=== PATIENT | female | born 1935 | race Caucasian/White ===

== ENCOUNTER 2017-11-06 21:35 | Emergency (ER) | payer OTHER, SELFPAY ==
--- NOTE | 2017-11-06 21:38 | ED.UPPEXIN ---
HPI - Extremity Injury (Upper) General Chief Complaint: Extremity Problem,Nontraumatic Stated Complaint: LT ARM PAIN Time Seen by Provider: 11/06/17 21:38 Source: patient Mode of arrival: ambulatory Limitations: no limitations History of Present Illness HPI narrative: 81-year-old female here for evaluation of left arm pain. Patient states that soon after she awoke this morning she had an episode of pain on the outside of her left arm about midway between her elbow and shoulder. She states that it lasted less than 15 sec. She says it felt like that she was getting a shot. States that it went completely away. Has had a couple other times throughout the day. States that she waited until the evening to come in because ?that is when I got things done ?. Has never had any cardiac issues in the past. Is not currently having any symptoms the time of my evaluation. States that it was a pinpoint pain on the outside of her arm. She states that she does not know if it got worse when she touched it or when she moved her arm. She could not reproduce it by palpation or moving her arm. Never anything like it before. She states that she has been moving heavy objects over the past couple days trying to get her garden together. 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 #20 units 09/18/17 [massage] #12 units 09/18/17 Allergies Allergy/AdvReac Type Severity Reaction Status Date / Time No Known Allergies Allergy Uncoded 11/06/17 21:53 Review of Systems Constitutional Denies chills, Denies fever(s), Denies lethargy and Denies weakness Cardiovascular Denies chest pain, Denies irregular heart rhythm, Denies lightheadedness, Denies palpitations, Denies dyspnea, Denies dyspnea on exertion and Denies orthopnea Respiratory Denies cough, Denies dyspnea, Denies dyspnea on exertion and Denies wheezing Gastrointestinal Gastrointestinal: Denies abdominal pain, Denies change in bowel habits, Denies diarrhea, Denies nausea and Denies vomiting Musculoskeletal Comments: Left arm pain Integumentary/Breasts Denies pruritus, Denies erythema, Denies rash and Denies wounds Neurologic Denies weakness Endocrine Denies palpitations Hematologic/Lymphatic Denies easy bruising Allergic/Immunologic Denies wheezing [facility] History 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) Status post hysterectomy Social History Smoking Status: Never smoker Exam Initial Vital Signs Initial Vital Signs: Vital Signs Temperature 98.3 F 11/06/17 21:46 Pulse Rate 87 11/06/17 21:46 Respiratory Rate 16 11/06/17 21:46 Blood Pressure 150/86 H 11/06/17 21:46 Pulse Oximetry 98 11/06/17 21:46 Resp Effort & Inspection: normal respiratory effort, able to speak in complete sentences, no respiratory distress and no use of accessory muscles Auscultation: clear to auscultation bilaterally, no rales, no rhonchi and no wheezes Cardio Rate: regular rate Rhythm: regular rhythm Heart Sounds: no click, no gallops, no murmurs and no rubs Pulses: normal peripheral pulses Skin General: no rashes or lesions noted, No jaundice and No petechiae Neuro General: alert, awake and oriented x3 Speech: speech normal Other: Sensation intact to light touch left upper extremity Extrem Other: Full range of motion left shoulder, left elbow, left forearm, left wrist. Course Vital Signs - 8 hr 11/06/17 21:46 11/06/17 22:15 Temperature 98.3 F Pulse Rate 87 89 Respiratory Rate 16 Blood Pressure 150/86 H Blood Pressure [Right Arm] 134/71 H Pulse Oximetry 98 96 MDM - Extremity Injury (Upper) ECG Data Attestation: I personally reviewed and interpreted this ECG as follows: Prior ECG tracings: not available for review Interpretation: EKG dated 06 November 2017 time 2148 hr Sinus rhythm Ventricular rate of 83 Normal axis Normal intervals Normal QRS Nonspecific ST T wave changes MDM Narrative Medical decision making narrative: Patient is asymptomatic the time of my evaluation. Patient describes the pain as pinpoint pain that is at the location of the insertion of the deltoid on the lateral aspect of her left arm. She states that it is localized just to that area. Denies any other symptoms. No skin changes area. Consider cardiac etiology however the fact that it is pinpoint, at the insertion of the deltoid, that she has had a change in activity recently, and the description of the symptoms per the patient and do feel that ACS is unlikely in her case. We did discuss this. She was instructed that she needed to contact her primary doctor regarding any changes in her medication. She was given return precautions. She expressed understanding and agreement with plan. Discharge Plan Departure Patient Disposition: Home, Self-Care Clinical Impression: Left arm pain Discharge Date/Time: 11/06/17 22:35 Interventions: ED Discharge Assessment Last Done: 11/06/17 22:35 Instructions: How To Perform RICE (Rest, Ice, Compress, Elevate) Activity Restrictions/Additional Instructions: Talk to your primary about the indication for a daily aspirin return to the emergency department for any new symptoms, worsening symptoms, chest pain, shortness of breath or any other concerning symptoms. 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
[2017-11-06 21:46] VITALS: BP 150/86; PULSE 87; RESP 16; TEMP 36.8; O2SAT 98
[2017-11-06 22:15] VITALS: BP 134/71; PULSE 89; O2SAT 96
== END 2017-11-06 22:35 | disposition home or self-care (01) ==
LOC: ED 22:15
PROVIDERS: Emergency Provider Emergency Medicine; PCP Physician Assistant
DX: M79.602 Pain in left arm (principal)
CPT/HCPCS: 93005; 99282; 99283

== ENCOUNTER 2018-04-28 19:42 | Emergency (ER) | payer OTHER, SELFPAY ==
[2018-04-28 19:44] VITALS: BP 146/64; PULSE 85; RESP 20; TEMP 36.3; O2SAT 97
--- NOTE | 2018-04-28 20:18 | ED.ABDPAIN ---
HPI - Abdominal Pain <LONG Duval - Last Filed: 04/28/18 22:26> General Chief Complaint: Abdominal Pain Stated Complaint: STOMACH ISSUES Time Seen by Provider: 04/28/18 20:18 Source: patient Mode of arrival: ambulatory Limitations: no limitations History of Present Illness HPI narrative: 82-year-old healthy female that is a nonsmoker here for complaint of pain into her umbilical area on and off over the past several weeks. She states that she has had pain after eating at times. She denies any fevers or chills. No trauma to the abdomen. No urinary symptoms. Last bowel movement was earlier today and was unremarkable. Positive p.o. intake. No nausea or vomiting. She denies any other stressors or relievers of her pain. She denies any pain at this time. 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 #20 units 09/18/17 [massage] #12 units 09/18/17 polyethylene glycol 3350 17 gram PO DAILY #14 each 04/28/18 Allergies Allergy/AdvReac Type Severity Reaction Status Date / Time No Known Allergies Allergy Uncoded 04/28/18 19:17 Review of Systems <LONG Duval - Last Filed: 04/28/18 22:26> Constitutional Denies chills, Denies fever(s), Denies lethargy and Denies weakness Eyes Denies change in vision, Denies eye discharge, Denies irritation and Denies loss of vision ENT Ears, Nose, Mouth, and Throat: Denies change in voice, Denies neck pain and Denies sore throat Cardiovascular Denies chest pain, Denies irregular heart rhythm, Denies lightheadedness, Denies palpitations, Denies dyspnea, Denies dyspnea on exertion and Denies orthopnea Respiratory Denies cough, Denies dyspnea, Denies dyspnea on exertion and Denies wheezing Gastrointestinal Gastrointestinal: Reports abdominal pain Genitourinary Denies hematuria, Denies flank pain, Denies urinary incontinence and Denies urinary urgency Musculoskeletal Denies neck pain Neurologic Denies confusion, Denies loss of vision and Denies weakness Psychiatric Denies anxiety, Denies confusion, Denies depression, Denies homicidal ideation and Denies suicidal ideation Endocrine Denies palpitations Hematologic/Lymphatic Denies easy bruising Allergic/Immunologic Denies wheezing Exam <LONG Dvual - Last Filed: 04/28/18 22:26> Initial Vital Signs Initial Vital Signs: Vital Signs Temperature 97.3 F L 04/28/18 19:44 Pulse Rate 85 04/28/18 19:44 Respiratory Rate 20 04/28/18 19:44 Blood Pressure 146/64 H 04/28/18 19:44 Pulse Oximetry 97 04/28/18 19:44 Const General: cooperative and well developed Nutritional Appearance: well nourished Orientation: alert, awake, oriented x3 and not confused HENMT Mouth: oral mucosae normal and moist mucous membranes Eyes Conjunctivae: conjunctivae normal Sclera: sclerae normal Pupils: PERRL EOM: EOM intact bilaterally Resp Effort & Inspection: normal respiratory effort, able to speak in complete sentences, no respiratory distress and no use of accessory muscles Auscultation: clear to auscultation bilaterally, no rales, no rhonchi and no wheezes Cardio Rate: regular rate Rhythm: regular rhythm Heart Sounds: no click, no gallops, no murmurs and no rubs GI Inspection: non-distended Palpation: soft, no hepatosplenomegaly, No guarding, No pulsatile mass and No tender Auscultation: normal bowel sounds General: No CVA tenderness Neuro General: alert, oriented x3, gait normal and no focal motor deficits Speech: speech normal Extrem General: full ROM, no clubbing, cyanosis or edema, no pedal edema and no calf tenderness <Michele Boudreaux DO - Last Filed: 04/29/18 00:33> Initial Vital Signs Initial Vital Signs: Vital Signs Temperature 97.3 F L 04/28/18 19:44 Pulse Rate 85 04/28/18 19:44 Respiratory Rate 20 04/28/18 19:44 Blood Pressure 146/64 H 04/28/18 19:44 Pulse Oximetry 97 04/28/18 19:44 Course <LONG Duval - Last Filed: 04/28/18 22:26> Orders Ordered: ED Orders 04/28/18 20:20 Complete Blood Count AUTO DIFF Stat Comprehensive Metabolic Panel Stat Lipase Stat Partial Thromboplastin Time Stat Prothrombin Time INR Stat 04/28/18 20:31 CT abdomen pelvis w con Stat Vital Signs - 8 hr 04/28/18 19:44 04/28/18 22:22 Temperature 97.3 F L Pulse Rate 85 73 Respiratory Rate 20 14 Blood Pressure 146/64 H 134/62 Pulse Oximetry 97 98 <Michele Boudreaux DO - Last Filed: 04/29/18 00:33> Orders Ordered: ED Orders 04/28/18 20:20 Complete Blood Count AUTO DIFF Stat Comprehensive Metabolic Panel Stat Lipase Stat Partial Thromboplastin Time Stat Prothrombin Time INR Stat 04/28/18 20:31 CT abdomen pelvis w con Stat Vital Signs - 8 hr 04/28/18 19:44 04/28/18 22:22 Temperature 97.3 F L Pulse Rate 85 73 Respiratory Rate 20 14 Blood Pressure 146/64 H 134/62 Pulse Oximetry 97 98 MDM - Abdominal Pain <LONG Duval - Last Filed: 04/28/18 22:26> Lab Data Result diagrams: 04/28/18 20:20 04/28/18 20:20 Lab Results 04/28/18 04/28/18 04/28/18 Range/Units 20:20 20:20 20:20 WBC 6.1 (4.5-11.0) X10^3/uL RBC 4.33 (4.0-5.2) X10^6/uL Hgb 13.2 (12.0-16.0) g/dL Hct 39.6 (36-46) % MCV 91.4 (80-100) fL MCH 30.3 (26-34) PG MCHC 33.2 (30-36) % RDW 13.9 (11.6-14.8) % Plt Count 236 (150-400) X10^3/uL Neut % (Auto) 61.4 (50-75) % Lymph % (Auto) 25.1 (25-40) % [place] % (Auto) 9.2 (3-14) % Eos % (Auto) 3.2 (2-4) % Baso % (Auto) 1.1 (0-2) % Neut # (Auto) 3700 (0406-4106) /uL PT 10.6 (10.1-12.7) SECONDS INR 1.0 (0.9-1.3) APTT 32 (26.4-36.2) SECONDS Sodium 143 (137-145) mmol/L Potassium 4.1 (3.4-5.1) mmol/L Chloride 107 (98-107) mmol/L Carbon Dioxide 27 (22-32) mmol/L BUN 17 (7-17) mg/dL Creatinine 0.60 (0.52-1.04) mg/dL Estimated GFR > 60.0 (>60) mL/min BUN/Creatinine Ratio 28.3 H (6-22) Glucose 98 (80-110) mg/dL Calcium 9.0 (8.4-10.2) mg/dL Total Bilirubin 0.2 (0.2-1.3) mg/dL AST 32 (14-36) IU/L ALT 29 (9-52) IU/L Alkaline Phosphatase 91 (38-126) U/L Total Protein 6.9 (6.3-8.2) g/dL Albumin 4.1 (3.5-5.0) g/dL Globulin 2.8 (1.7-4.1) g/dL Albumin/Globulin Ratio 1.5 (1.0-2.8) Lipase 365 H (23-300) U/L Point of care testing: Urine Dip Bedside Urine Glucose Negative Bedside Urine Bilirubin - Negative Bedside Urine Ketone - Negative Bedside Urine Occult Blood - Negative Bedside Urine Protein - Negative Bedside Urine Urobilinogen - Negative Bedside Urine Nitrite - Negative Bedside Urine Leukocytes - Negative Esterase Imaging Data CT scan - abdomen: Radiologist's impression: [place] [address] CT Scan Report Signed Patient: Erica Alfaro [facility]#: [id number] : 5Acct:[id number] Age/Sex: 82 / FDate of Service: 04/28/18 Loc: ED Accession Number: [id number] Procedure: CT abdomen pelvis w con Ordering Provider: Dillon White PROCEDURE: CT ABDOMEN PELVIS W CON INDICATIONS: Pain into infraumbilical area TECHNIQUE: After the administration of intravenous contrast, 5 mm thick sections acquired from the diaphragm to the symphysis. 5 mm coronal and sagittal reformats were acquired. For radiation dose reduction, the following was used: automated exposure control, adjustment of mA and/or kV according to patient size. COMPARISON: None. FINDINGS: Image quality: Diagnostic sensitivity of study limited secondary to lack of oral contrast and near-complete absence of mesenteric fat. ABDOMEN: Lung bases: Lung bases are clear. Heart size is normal. Solid organs: Liver is normal in size and enhancement. Gallbladder is within normal limits. Biliary system is mildly dilated. Pancreas enhances normally. Spleen is normal in size and enhancement. No adrenal nodules. Kidneys demonstrate normal size and enhancement, without hydronephrosis. Peritoneum and bowel: Bowel loops demonstrate normal wall thickness and caliber. There is prominence of the mucosa in the proximal stomach. Multiple fluid filled loops of small bowel are sequestered in the pelvis. Superimposed pelvic abscess cannot be excluded without benefit of oral contrast. The appendix is not definitely visualized. Appendicitis cannot be excluded. No free fluid or air. Nodes and vessels: No retroperitoneal or mesenteric adenopathy by size criteria. Aorta and inferior vena cava are normal in size. Miscellaneous: No ventral hernias. PELVIS: Genitourinary: Bladder wall thickness is normal. Miscellaneous: No inguinal hernias or adenopathy. Bones: No suspicious bony lesions. No vertebral body compression fractures. Right hip arthroplasty. Spine degenerative disease and facet arthropathy noted. IMPRESSION: 1. Diagnostic sensitivity of study limited secondary to absence of oral contrast and patient with low body mass index. 2. Severe fecal loading throughout the colon. Please correlate with clinical data. 3. Multiple fluid-filled loops of small bowel sequestered in the pelvis. Superimposed pelvic abscess cannot be excluded. Free fluid in the pelvis cannot be excluded. 4. The appendix is not definitely visualized. Appendicitis cannot be excluded. 5. No definite free intraperitoneal air. 6. Mild intra-and extrahepatic biliary dilatation. Recommend correlation with laboratory data to exclude biliary obstruction. If there is clinical concern for bowel obstruction, an ERCP or MRCP should be considered for further evaluation. 7. Mucosal prominence involving the cardia the proximal stomach which could be due to under distention versus infiltrating neoplasm. Dictated by: Brittney Tucker MD, PhD on 04/28/2018 at 21:25 Approved by: Brittney Tucker MD, PhD on 04/28/2018 at 21:34 [facility] Narrative Medical decision making narrative: Normal exam today no CVA tenderness no flank pain and no abdominal pain at this time. CBC was obtained and was unremarkable. Chem panel was obtained slightly elevated lipase at 365 however otherwise was unremarkable. Lipase was unremarkable. Urinalysis was negative for urinary tract infection. CT of the abdomen does show stool loading to the colon. She is tolerating p.o. fluids well. Will prescribed MiraLax to see if it helps with her stool loading. Follow up with primary care provider next week. For any worsening symptoms return emergency room. Plenty of fluids. <Michele BoudreauxDO - Last Filed: 04/29/18 00:33> Lab Data Lab Results 04/28/18 04/28/18 04/28/18 Range/Units 20:20 20:20 20:20 WBC 6.1 (4.5-11.0) X10^3/uL RBC 4.33 (4.0-5.2) X10^6/uL Hgb 13.2 (12.0-16.0) g/dL Hct 39.6 (36-46) % MCV 91.4 (80-100) fL MCH 30.3 (26-34) PG MCHC 33.2 (30-36) % RDW 13.9 (11.6-14.8) % Plt Count 236 (150-400) X10^3/uL Neut % (Auto) 61.4 (50-75) % Lymph % (Auto) 25.1 (25-40) % [place] % (Auto) 9.2 (3-14) % Eos % (Auto) 3.2 (2-4) % Baso % (Auto) 1.1 (0-2) % Neut # (Auto) 3700 (2980-5294) /uL PT 10.6 (10.1-12.7) SECONDS INR 1.0 (0.9-1.3) APTT 32 (26.4-36.2) SECONDS Sodium 143 (137-145) mmol/L Potassium 4.1 (3.4-5.1) mmol/L Chloride 107 (98-107) mmol/L Carbon Dioxide 27 (22-32) mmol/L BUN 17 (7-17) mg/dL Creatinine 0.60 (0.52-1.04) mg/dL Estimated GFR > 60.0 (>60) mL/min BUN/Creatinine Ratio 28.3 H (6-22) Glucose 98 (80-110) mg/dL Calcium 9.0 (8.4-10.2) mg/dL Total Bilirubin 0.2 (0.2-1.3) mg/dL AST 32 (14-36) IU/L ALT 29 (9-52) IU/L Alkaline Phosphatase 91 (38-126) U/L Total Protein 6.9 (6.3-8.2) g/dL Albumin 4.1 (3.5-5.0) g/dL Globulin 2.8 (1.7-4.1) g/dL Albumin/Globulin Ratio 1.5 (1.0-2.8) Lipase 365 H (23-300) U/L Point of care testing: Urine Dip Bedside Urine Glucose Negative Bedside Urine Bilirubin - Negative Bedside Urine Ketone - Negative Bedside Urine Occult Blood - Negative Bedside Urine Protein - Negative Bedside Urine Urobilinogen - Negative Bedside Urine Nitrite - Negative Bedside Urine Leukocytes - Negative Esterase Discharge Plan Departure Patient Disposition: Home Clinical Impression: Abdominal pain Discharge Date/Time: 04/28/18 22:29 Interventions: ED Discharge Assessment Last Done: 04/28/18 22:22 Instructions: DI for Abdominal Pain-Adult Activity Restrictions/Additional Instructions: CT of the abdomen shows a good amount of stool in the colon indicating possible constipation. You are prescribed a a laxative called MiraLax use as directed. Plenty of fluids. Follow up with primary care provider next week. For any worsening symptoms return to the emergency room. 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
--- NOTE | 2018-04-28 20:31 | DI.CT.S_ITS ---
PROCEDURE: CT ABDOMEN PELVIS W CON INDICATIONS: Pain into infraumbilical area TECHNIQUE: After the administration of intravenous contrast, 5 mm thick sections acquired from the diaphragm to the symphysis. 5 mm coronal and sagittal reformats were acquired. For radiation dose reduction, the following was used: automated exposure control, adjustment of mA and/or kV according to patient size. COMPARISON: None. FINDINGS: Image quality: Diagnostic sensitivity of study limited secondary to lack of oral contrast and near-complete absence of mesenteric fat. ABDOMEN: Lung bases: Lung bases are clear. Heart size is normal. Solid organs: Liver is normal in size and enhancement. Gallbladder is within normal limits. Biliary system is mildly dilated. Pancreas enhances normally. Spleen is normal in size and enhancement. No adrenal nodules. Kidneys demonstrate normal size and enhancement, without hydronephrosis. Peritoneum and bowel: Bowel loops demonstrate normal wall thickness and caliber. There is prominence of the mucosa in the proximal stomach. Multiple fluid filled loops of small bowel are sequestered in the pelvis. Superimposed pelvic abscess cannot be excluded without benefit of oral contrast. The appendix is not definitely visualized. Appendicitis cannot be excluded. No free fluid or air. Nodes and vessels: No retroperitoneal or mesenteric adenopathy by size criteria. Aorta and inferior vena cava are normal in size. Miscellaneous: No ventral hernias. PELVIS: Genitourinary: Bladder wall thickness is normal. Miscellaneous: No inguinal hernias or adenopathy. Bones: No suspicious bony lesions. No vertebral body compression fractures. Right hip arthroplasty. Spine degenerative disease and facet arthropathy noted. IMPRESSION: 1. Diagnostic sensitivity of study limited secondary to absence of oral contrast and patient with low body mass index. 2. Severe fecal loading throughout the colon. Please correlate with clinical data. 3. Multiple fluid-filled loops of small bowel sequestered in the pelvis. Superimposed pelvic abscess cannot be excluded. Free fluid in the pelvis cannot be excluded. 4. The appendix is not definitely visualized. Appendicitis cannot be excluded. 5. No definite free intraperitoneal air. 6. Mild intra-and extrahepatic biliary dilatation. Recommend correlation with laboratory data to exclude biliary obstruction. If there is clinical concern for bowel obstruction, an ERCP or MRCP should be considered for further evaluation. 7. Mucosal prominence involving the cardia the proximal stomach which could be due to under distention versus infiltrating neoplasm. Dictated by: Brittney Tucker MD, PhD on 04/28/2018 at 21:25 Approved by: Brittney Tucker MD, PhD on 04/28/2018 at 21:34
[2018-04-28 20:35] LABS: Add Manual Diff / Slide Review NO; Basophils Percent Auto 1.1 % (0-2); Eosinophils Percent Auto 3.2 % (2-4); Hematocrit 39.6 % (36-46); Hemoglobin 13.2 g/dL (12.0-16.0); Lymphocytes Percent Auto 25.1 % (25-40); Mean Corpuscular HGB Conc 33.2 % (30-36); Mean Corpuscular Hemoglobin 30.3 PG (26-34); Mean Corpuscular Volume 91.4 fL (80-100); Monocytes Percent Auto 9.2 % (3-14); Neutrophils Absolute Auto 3700 /uL (3000-5900); Neutrophils Percent Auto 61.4 % (50-75); Platelet Count 236 X10^3/uL (150-400); Red Blood Cell Count 4.33 X10^6/uL (4.0-5.2); Red Cell Distribution Width 13.9 % (11.6-14.8); White Blood Cell Count 6.1 X10^3/uL (4.5-11.0)
[2018-04-28 20:42] LABS: Prothrombin Time 10.6 SECONDS (10.1-12.7)
[2018-04-28 20:45] LABS: PTT Partial Thromboplastin Tim 32 SECONDS (26.4-36.2)
[2018-04-28 20:48] LABS: Alanine Aminotransferase 29 IU/L (9-52); Albumin 4.1 g/dL (3.5-5.0); Albumin Globulin Ratio 1.5 (1.0-2.8); Alkaline Phosphatase 91 U/L (38-126); Aspartate Aminotransferase 32 IU/L (14-36); BUN Creatinine Ratio 28.3 (6-22); Bilirubin Total 0.2 mg/dL (0.2-1.3); Blood Urea Nitrogen 17 mg/dL (7-17); Carbon Dioxide 27 mmol/L (22-32); Chloride 107 mmol/L (98-107); Estimated Glomerular Filt Rate > 60.0 mL/min (>60); Globulin 2.8 g/dL (1.7-4.1); Glucose 98 mg/dL (80-110); HEMOLYSIS < 15 (0-50); Lipase 365 U/L (23-300); Potassium 4.1 mmol/L (3.4-5.1); Sodium 143 mmol/L (137-145); Total Protein 6.9 g/dL (6.3-8.2)
--- NOTE | 2018-04-28 21:53 | ED_ITS ---
HPI - Abdominal Pain <LONG Duval - Last Filed: 04/28/18 22:26> General Chief Complaint: Abdominal Pain Stated Complaint: STOMACH ISSUES Time Seen by Provider: 04/28/18 20:18 Source: patient Mode of arrival: ambulatory Limitations: no limitations History of Present Illness HPI narrative: 82-year-old healthy female that is a nonsmoker here for complaint of pain into her umbilical area on and off over the past several weeks. She states that she has had pain after eating at times. She denies any fevers or chills. No trauma to the abdomen. No urinary symptoms. Last bowel movement was earlier today and was unremarkable. Positive p.o. intake. No nausea or vomiting. She denies any other stressors or relievers of her pain. She denies any pain at this time. Related Data Home Medications Medication Instructions Recorded Confirmed [antioxidant] #0 01/14/17 04/28/18 multivitamin [Multiple Vitamins] #0 01/14/17 04/28/18 Previous Rx's Medication Instructions Recorded [janitor caretaker] WEEKLY #20 units 09/18/17 [massage] #12 units 09/18/17 polyethylene glycol 3350 17 gram PO DAILY #14 each 04/28/18 Allergies Allergy/AdvReac Type Severity Reaction Status Date / Time No Known Allergies Allergy Uncoded 04/28/18 19:17 Review of Systems <LONG Duval - Last Filed: 04/28/18 22:26> Constitutional Denies chills, Denies fever(s), Denies lethargy and Denies weakness Eyes Denies change in vision, Denies eye discharge, Denies irritation and Denies loss of vision ENT Ears, Nose, Mouth, and Throat: Denies change in voice, Denies neck pain and Denies sore throat Cardiovascular Denies chest pain, Denies irregular heart rhythm, Denies lightheadedness, Denies palpitations, Denies dyspnea, Denies dyspnea on exertion and Denies orthopnea Respiratory Denies cough, Denies dyspnea, Denies dyspnea on exertion and Denies wheezing Gastrointestinal Gastrointestinal: Reports abdominal pain Genitourinary Denies hematuria, Denies flank pain, Denies urinary incontinence and Denies urinary urgency Musculoskeletal Denies neck pain Neurologic Denies confusion, Denies loss of vision and Denies weakness Psychiatric Denies anxiety, Denies confusion, Denies depression, Denies homicidal ideation and Denies suicidal ideation Endocrine Denies palpitations Hematologic/Lymphatic Denies easy bruising Allergic/Immunologic Denies wheezing Exam <LONG Duval - Last Filed: 04/28/18 22:26> Initial Vital Signs Initial Vital Signs: Vital Signs Temperature 97.3 F L 04/28/18 19:44 Pulse Rate 85 04/28/18 19:44 Respiratory Rate 20 04/28/18 19:44 Blood Pressure 146/64 H 04/28/18 19:44 Pulse Oximetry 97 04/28/18 19:44 Const General: cooperative and well developed Nutritional Appearance: well nourished Orientation: alert, awake, oriented x3 and not confused HENMT Mouth: oral mucosae normal and moist mucous membranes Eyes Conjunctivae: conjunctivae normal Sclera: sclerae normal Pupils: PERRL EOM: EOM intact bilaterally Resp Effort & Inspection: normal respiratory effort, able to speak in complete sentences, no respiratory distress and no use of accessory muscles Auscultation: clear to auscultation bilaterally, no rales, no rhonchi and no wheezes Cardio Rate: regular rate Rhythm: regular rhythm Heart Sounds: no click, no gallops, no murmurs and no rubs GI Inspection: non-distended Palpation: soft, no hepatosplenomegaly, No guarding, No pulsatile mass and No tender Auscultation: normal bowel sounds General: No CVA tenderness Neuro General: alert, oriented x3, gait normal and no focal motor deficits Speech: speech normal Extrem General: full ROM, no clubbing, cyanosis or edema, no pedal edema and no calf tenderness <Michele Boudreaux DO - Last Filed: 04/29/18 00:33> Initial Vital Signs Initial Vital Signs: Vital Signs Temperature 97.3 F L 04/28/18 19:44 Pulse Rate 85 04/28/18 19:44 Respiratory Rate 20 04/28/18 19:44 Blood Pressure 146/64 H 04/28/18 19:44 Pulse Oximetry 97 04/28/18 19:44 Course <LONG Duval - Last Filed: 04/28/18 22:26> Orders Ordered: ED Orders 04/28/18 20:20 Complete Blood Count AUTO DIFF Stat Comprehensive Metabolic Panel Stat Lipase Stat Partial Thromboplastin Time Stat Prothrombin Time INR Stat 04/28/18 20:31 CT abdomen pelvis w con Stat Vital Signs - 8 hr 04/28/18 19:44 04/28/18 22:22 Temperature 97.3 F L Pulse Rate 85 73 Respiratory Rate 20 14 Blood Pressure 146/64 H 134/62 Pulse Oximetry 97 98 <Michele Boudreaux DO - Last Filed: 04/29/18 00:33> Orders Ordered: ED Orders 04/28/18 20:20 Complete Blood Count AUTO DIFF Stat Comprehensive Metabolic Panel Stat Lipase Stat Partial Thromboplastin Time Stat Prothrombin Time INR Stat 04/28/18 20:31 CT abdomen pelvis w con Stat Vital Signs - 8 hr 04/28/18 19:44 04/28/18 22:22 Temperature 97.3 F L Pulse Rate 85 73 Respiratory Rate 20 14 Blood Pressure 146/64 H 134/62 Pulse Oximetry 97 98 MDM - Abdominal Pain <LONG Duval - Last Filed: 04/28/18 22:26> Lab Data Result diagrams: 04/28/18 20:20 04/28/18 20:20 Lab Results 04/28/18 04/28/18 04/28/18 Range/Units 20:20 20:20 20:20 WBC 6.1 (4.5-11.0) X10^3/uL RBC 4.33 (4.0-5.2) X10^6/uL Hgb 13.2 (12.0-16.0) g/dL Hct 39.6 (36-46) % MCV 91.4 (80-100) fL MCH 30.3 (26-34) PG MCHC 33.2 (30-36) % RDW 13.9 (11.6-14.8) % Plt Count 236 (150-400) X10^3/uL Neut % (Auto) 61.4 (50-75) % Lymph % (Auto) 25.1 (25-40) % [place] % (Auto) 9.2 (3-14) % Eos % (Auto) 3.2 (2-4) % Baso % (Auto) 1.1 (0-2) % Neut # (Auto) 3700 (1475-6712) /uL PT 10.6 (10.1-12.7) SECONDS INR 1.0 (0.9-1.3) APTT 32 (26.4-36.2) SECONDS Sodium 143 (137-145) mmol/L Potassium 4.1 (3.4-5.1) mmol/L Chloride 107 (98-107) mmol/L Carbon Dioxide 27 (22-32) mmol/L BUN 17 (7-17) mg/dL Creatinine 0.60 (0.52-1.04) mg/dL Estimated GFR > 60.0 (>60) mL/min BUN/Creatinine Ratio 28.3 H (6-22) Glucose 98 (80-110) mg/dL Calcium 9.0 (8.4-10.2) mg/dL Total Bilirubin 0.2 (0.2-1.3) mg/dL AST 32 (14-36) IU/L ALT 29 (9-52) IU/L Alkaline Phosphatase 91 (38-126) U/L Total Protein 6.9 (6.3-8.2) g/dL Albumin 4.1 (3.5-5.0) g/dL Globulin 2.8 (1.7-4.1) g/dL Albumin/Globulin Ratio 1.5 (1.0-2.8) Lipase 365 H (23-300) U/L Point of care testing: Urine Dip Bedside Urine Glucose Negative Bedside Urine Bilirubin - Negative Bedside Urine Ketone - Negative Bedside Urine Occult Blood - Negative Bedside Urine Protein - Negative Bedside Urine Urobilinogen - Negative Bedside Urine Nitrite - Negative Bedside Urine Leukocytes - Negative Esterase Imaging Data CT scan - abdomen: Radiologist's impression: [place] [address] CT Scan Report Signed Patient: Erica Alfaro [facility]#: [id number] : 5Acct:[id number] Age/Sex: 82 / FDate of Service: 04/28/18 Loc: ED Accession Number: [id number] Procedure: CT abdomen pelvis w con Ordering Provider: Dillon White PROCEDURE: CT ABDOMEN PELVIS W CON INDICATIONS: Pain into infraumbilical area TECHNIQUE: After the administration of intravenous contrast, 5 mm thick sections acquired from the diaphragm to the symphysis. 5 mm coronal and sagittal reformats were acquired. For radiation dose reduction, the following was used: automated exposure control, adjustment of mA and/or kV according to patient size. COMPARISON: None. FINDINGS: Image quality: Diagnostic sensitivity of study limited secondary to lack of oral contrast and near-complete absence of mesenteric fat. ABDOMEN: Lung bases: Lung bases are clear. Heart size is normal. Solid organs: Liver is normal in size and enhancement. Gallbladder is within normal limits. Biliary system is mildly dilated. Pancreas enhances normally. Spleen is normal in size and enhancement. No adrenal nodules. Kidneys demonstrate normal size and enhancement, without hydronephrosis. Peritoneum and bowel: Bowel loops demonstrate normal wall thickness and caliber. There is prominence of the mucosa in the proximal stomach. Multiple fluid filled loops of small bowel are sequestered in the pelvis. Superimposed pelvic abscess cannot be excluded without benefit of oral contrast. The appendix is not definitely visualized. Appendicitis cannot be excluded. No free fluid or air. Nodes and vessels: No retroperitoneal or mesenteric adenopathy by size criteria. Aorta and inferior vena cava are normal in size. Miscellaneous: No ventral hernias. PELVIS: Genitourinary: Bladder wall thickness is normal. Miscellaneous: No inguinal hernias or adenopathy. Bones: No suspicious bony lesions. No vertebral body compression fractures. Right hip arthroplasty. Spine degenerative disease and facet arthropathy noted. IMPRESSION: 1. Diagnostic sensitivity of study limited secondary to absence of oral contrast and patient with low body mass index. 2. Severe fecal loading throughout the colon. Please correlate with clinical data. 3. Multiple fluid-filled loops of small bowel sequestered in the pelvis. Superimposed pelvic abscess cannot be excluded. Free fluid in the pelvis cannot be excluded. 4. The appendix is not definitely visualized. Appendicitis cannot be excluded. 5. No definite free intraperitoneal air. 6. Mild intra-and extrahepatic biliary dilatation. Recommend correlation with laboratory data to exclude biliary obstruction. If there is clinical concern for bowel obstruction, an ERCP or MRCP should be considered for further evaluation. 7. Mucosal prominence involving the cardia the proximal stomach which could be due to under distention versus infiltrating neoplasm. Dictated by: Brittney Tucker MD, PhD on 04/28/2018 at 21:25 Approved by: Brittney Tucker MD, PhD on 04/28/2018 at 21:34 [facility] Narrative Medical decision making narrative: Normal exam today no CVA tenderness no flank pain and no abdominal pain at this time. CBC was obtained and was unremarkable. Chem panel was obtained slightly elevated lipase at 365 however otherwise was unremarkable. Lipase was unremarkable. Urinalysis was negative for urinary tract infection. CT of the abdomen does show stool loading to the colon. She is tolerating p.o. fluids well. Will prescribed MiraLax to see if it helps with her stool loading. Follow up with primary care provider next week. For any worsening symptoms return emergency room. Plenty of fluids. <Michele BoudreauxDO - Last Filed: 04/29/18 00:33> Lab Data Lab Results 04/28/18 04/28/18 04/28/18 Range/Units 20:20 20:20 20:20 WBC 6.1 (4.5-11.0) X10^3/uL RBC 4.33 (4.0-5.2) X10^6/uL Hgb 13.2 (12.0-16.0) g/dL Hct 39.6 (36-46) % MCV 91.4 (80-100) fL MCH 30.3 (26-34) PG MCHC 33.2 (30-36) % RDW 13.9 (11.6-14.8) % Plt Count 236 (150-400) X10^3/uL Neut % (Auto) 61.4 (50-75) % Lymph % (Auto) 25.1 (25-40) % [place] % (Auto) 9.2 (3-14) % Eos % (Auto) 3.2 (2-4) % Baso % (Auto) 1.1 (0-2) % Neut # (Auto) 3700 (3340-3843) /uL PT 10.6 (10.1-12.7) SECONDS INR 1.0 (0.9-1.3) APTT 32 (26.4-36.2) SECONDS Sodium 143 (137-145) mmol/L Potassium 4.1 (3.4-5.1) mmol/L Chloride 107 (98-107) mmol/L Carbon Dioxide 27 (22-32) mmol/L BUN 17 (7-17) mg/dL Creatinine 0.60 (0.52-1.04) mg/dL Estimated GFR > 60.0 (>60) mL/min BUN/Creatinine Ratio 28.3 H (6-22) Glucose 98 (80-110) mg/dL Calcium 9.0 (8.4-10.2) mg/dL Total Bilirubin 0.2 (0.2-1.3) mg/dL AST 32 (14-36) IU/L ALT 29 (9-52) IU/L Alkaline Phosphatase 91 (38-126) U/L Total Protein 6.9 (6.3-8.2) g/dL Albumin 4.1 (3.5-5.0) g/dL Globulin 2.8 (1.7-4.1) g/dL Albumin/Globulin Ratio 1.5 (1.0-2.8) Lipase 365 H (23-300) U/L Point of care testing: Urine Dip Bedside Urine Glucose Negative Bedside Urine Bilirubin - Negative Bedside Urine Ketone - Negative Bedside Urine Occult Blood - Negative Bedside Urine Protein - Negative Bedside Urine Urobilinogen - Negative Bedside Urine Nitrite - Negative Bedside Urine Leukocytes - Negative Esterase Discharge Plan Departure Patient Disposition: Home Clinical Impression: Abdominal pain Discharge Date/Time: 04/28/18 22:29 Interventions: ED Discharge Assessment Last Done: 04/28/18 22:22 Instructions: DI for Abdominal Pain-Adult Activity Restrictions/Additional Instructions: CT of the abdomen shows a good amount of stool in the colon indicating possible constipation. You are prescribed a a laxative called MiraLax use as directed. Plenty of fluids. Follow up with primary care provider next week. For any worsening symptoms return to the emergency room. Prescriptions: New polyethylene glycol 3350 17 gram powder in packet 17 gram PO DAILY Qty: 14 RF: 0 No Action multivitamin [Multiple Vitamins] 1 EACH tablet Qty: 0 RF: 0 [antioxidant] Qty: 0 RF: 0 [janitor caretaker] WEEKLY Qty: 20 RF: 1 [massage] Qty: 12 RF: 1 Referrals: [facility] [Provider Group] <Michele Boudreaux DO - Last Filed: 04/29/18 00:33> Cosign ED Attending Sidney Attestation: I was available for consultation during this patient's emergency department encounter
[2018-04-28 22:22] VITALS: BP 134/62; PULSE 73; RESP 14; O2SAT 98
== END 2018-04-28 22:29 | disposition home or self-care (01) ==
PROVIDERS: Emergency Medicine; Emergency Provider Nurse Practitioner Family
DX: R10.9 Unspecified abdominal pain (principal)
CPT/HCPCS: 36591; 74177; 80053; 81003; 83690; 85025; 85610; 85730; 93005; 99282; 99285; Q9967

== ENCOUNTER → 2018-07-27 12:34 | Outpatient (CLI) | payer OTHER, SELFPAY ==
[2018-07-27 13:11] LABS: BUN Creatinine Ratio 23.3 (6-22); Blood Urea Nitrogen 14 mg/dL (7-17); Estimated Glomerular Filt Rate > 60.0 mL/min (>60)
--- NOTE | 2018-07-27 13:19 | DI.CT.S_ITS ---
PROCEDURE: CT CHEST ABD PEL W CON INDICATIONS: ABNORMAL WEIGHT LOSS POST MENOPAUSAL TECHNIQUE: After the administration of oral and intravenous contrast, 5 mm thick sections acquired from the lung apices to the symphysis. 5 mm coronal and sagittal reformats were performed, with additional 7 mm coronal MIP reformats through the lungs. For radiation dose reduction, the following was used: automated exposure control, adjustment of mA and/or kV according to patient size. COMPARISON: [facility], CT, CT ABDOMEN PELVIS W CON, 04/28/2018, 21:06. FINDINGS: Image quality: Excellent. CHEST: Lungs and pleura: There is biapical scarring. Advanced centrilobular emphysema is seen. Again in a lobular septa and periphery of bilateral lung morley are seen with suggestion of early interstitial pulmonary fibrosis. Finding is more prominent in bilateral upper lobes. Ill-defined subpleural nodular density in lateral aspect of right lower lobe is seen and measures up to 6 mm in size series 8 image 34. Bibasilar scarring/atelectasis are seen. No pleural effusions or pneumothorax. Central and peripheral airways appear patent and normal in caliber. Mediastinum: Heart size is mildly enlarged. No pericardial effusion. No mediastinal or hilar adenopathy by size criteria. Thoracic aorta and central pulmonary arteries are normal in size. Mildly a fluid and air distended esophageal lumen is seen, no significant esophageal wall thickening or discrete esophageal wall mass is seen. No hiatal hernia. Chest wall: No axillary or supraclavicular adenopathy by size criteria. Thyroid gland is within normal limits. ABDOMEN: Solid organs: Liver is normal in size and enhancement. Gallbladder is within normal limits. Biliary system is non dilated. Pancreas enhances normally. Spleen is normal in size and enhancement. No adrenal nodules. Kidneys demonstrate normal size and enhancement, without hydronephrosis. Peritoneum and bowel: Markedly air distended gastric lumen is seen. No gross abnormal gastric wall thickening or discrete gastric wall mass. There is oral contrast seen in small bowel loops with no gross small bowel distention or abnormal narrowing. No abnormal small bowel wall thickening. Fecal stasis in the colon is seen extending to the level of rectum. No gross abnormal colonic wall thickening is seen. There is suggestion of asymmetric right posterior rectal wall thickening extending to the level of anal verge with narrowing of distal rectal lumen, a rectal wall mass cannot be excluded. Clinical correlation is recommended. There is no free fluid or free air. Nodes and vessels: No retroperitoneal or mesenteric adenopathy by size criteria. Aorta and inferior vena cava are normal in size. Miscellaneous: No ventral hernias. PELVIS: Genitourinary: Bladder wall thickness is normal. Miscellaneous: No inguinal hernias or adenopathy. Bones: No suspicious bony lesions. No vertebral body compression fractures. S-shaped scoliosis of thoracolumbar spine is seen. Patient is status post right hip arthroplasty. 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 IMPRESSION: 1. Markedly air distended gastric lumen with mild dilatation of the esophageal lumen. No gross esophageal wall or gastric wall thickening or discrete esophageal or gastric wall mass. Finding may represent gastroparesis. 2. No evidence of bowel structures. No small bowel or colonic wall thickening. Constipation as above. 3. Questionable asymmetric wall thickening involving right posterior lateral aspect of rectum with narrowing of the lumen, a rectal wall mass cannot be excluded. Clinical correlation is recommended. 4. COPD. Subpleural ill-defined nodular density measures 6 mm in size is seen in right lower lobe. No pleural effusion or pneumothorax. 5. No peritoneal free fluid or free air. No adenopathy is seen in chest, abdomen or pelvis. Dictated by: Karan Carmen M.D. on 07/27/2018 at 15:28 Approved by: Karan Carmen M.D. on 07/27/2018 at 15:39
== END ==
PROVIDERS: PCP Internal Medicine; Visit Provider Internal Medicine
DX: R63.0 Anorexia (principal); R63.4 Abnormal weight loss; Z78.0 Asymptomatic menopausal state; J44.9 Chronic obstructive pulmonary disease, unspecified
CPT/HCPCS: 36415; 71260; 74177; 77080; 82565; 84520; Q9967

== ENCOUNTER 2018-08-20 11:16 | Day surgery (SDC) | payer OTHER, SELFPAY ==
--- NOTE | 2018-08-20 | PATH_ITS ---
[facility] Accession Number: [id number] . 01 Material submitted: . PART A: COLON POLYP BIOPSY AT 40CM PART B: COLON POLYP BIOPSY AT 15CM . 02 Diagnosis: A. 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 . B. Biopsy, Colon Polyp at 15 cm: Tubular adenoma involving multiple biopsy fragments. MRV/08/23/2018 . 02 Electronically signed: . Brock George MD, Pathologist NPI- [id number] . 01 Gross description: . Part A: COLON POLYP BIOPSY AT 40CM: Received in formalin is 1 fragment(s) of smith, soft tissue measuring 0.3 x 0.3 x 0.3 cm which is entirely submitted and submitted entirely in 1 cassette(s) Part B: COLON POLYP BIOPSY AT 15CM: Received in formalin are multiple fragment(s) of smith, soft tissue measuring 0.1 x 0.1 x 0.1 cm to 0.7 x 0.6 x 0.6 cm which is entirely submitted and submitted entirely in 1 cassette(s) /DMC /DMC . 02 Pathologist provided ICD-10: D12.5 . 02 CPT . 905063, 292937 Performed at: 01 [facility] [address], [place], [place] [id number] MD Alexei Chaudhari MD Phone: [phone] Performed at: 02 [facility] [address] [place], [place] [id number] MD Rehana Lane MD Phone: [phone]
[2018-08-20 11:51] VITALS: BMI 18.3
[2018-08-20 11:58] VITALS: BP 131/65; PULSE 88; RESP 16; TEMP 36.8; O2SAT 99
[2018-08-20] MEDS: SODIUM CHLORIDE 0.9% 1,000 ML 200 ML IV (12:14)
[2018-08-20] MEDS: fentaNYL 250 MCG/5 ML INJ IV (12:40)
[2018-08-20] MEDS: MIDAZOLAM 5 MG/5 ML VIAL IV (12:40)
--- NOTE | 2018-08-20 12:56 | PM.PREOP ---
Pre-operative Note Interval Note History & Physical reviewed/Exam performed by Physician: Yes Changes to H&P: No H&P completed within 30 days and has changed as indicated here:: Review of the history and physical and repeat exam were accomplished prior to the colonoscopic exam ASA Class (for procedural sedation): I
--- NOTE | 2018-08-20 12:57 | PM.OP.ENDO ---
Operative Date/Time/Diagnoses Date of procedure: 08/20/18 Time of procedure: 12:57 Pre-op diagnosis: Abnormal CT scan showing thickening of the wall the rectum Post-op diagnosis: same (Two polyps. No abnormality of the rectal wall appreciated to explain the CT findings either on digital exam or with the colonoscope.) Procedure & Clinicians Study performed: Colonoscopy with cold biopsy and hot snare polypectomy Same procedure as scheduled: Yes Indications: Abnormal CT scan of the rectum Surgeon: Shant Lopez Procedure Notes SCOAP/Timeout: Performed Procedure in detail: The patient was placed in the left lateral decubitus position and underwent IV sedation directed by the surgeon consisting of fentanyl and Versed. Digital exam was unremarkable. I could not feel anything unusual and I was able to get a very good rectal exam because she is so thin and tiny. The scope was inserted and advanced through the rectum into the sigmoid, descending, transverse, and ascending colon. No lesions were seen in the rectum except for a polyp which would not give thickening of to the wall of the rectum. The cecum was reached identified by the ileocecal valve and the appendiceal opening. The ileocecal valve was successfully cannulated. The terminal ileum was normal in appearance. The scope was gradually brought out. Polyps were found at 40 cm and 15 cm from the anal verge. The lesion 40 cm was completely removed with cold biopsy forceps. Lesion of 15 cm was completely removed with a hot snare polypectomy device. The scope ultimately was retroflexed in the rectum. The appearance was normal. The scope was removed and the patient tolerated the procedure well. There was no evidence of any lesion to explain the CT findings. Scope withdrawal time: 6 min Sedation minutes: 20 Findings: polyp (Two removed) Specimen(s): other (Polyps) Complications: none Recommendations: Colonscopy in 5 years (If the patient is in good health) Follow up: as needed Disposition: PACU
[2018-08-20 12:59] VITALS: BP 118/62; PULSE 85; RESP 14; TEMP 36.3; O2SAT 100
[2018-08-20 13:04] VITALS: BP 140/66; PULSE 84; RESP 16; TEMP 36.8; O2SAT 100
[2018-08-20 14:04] VITALS: BP 110/52; PULSE 80; RESP 16; TEMP 37.1; O2SAT 98
== END 2018-08-20 14:22 | disposition home or self-care (01) ==
PROVIDERS: PCP Internal Medicine; Visit Provider Specialist
PROC: 0DJD8ZZ Inspection of Lower Intestinal Tract, Via Natural or Artificial Opening Endoscopic (ICD-10-PCS; CPT 45378; principal; 2018-08-20 12:45)
DX: D12.5 Benign neoplasm of sigmoid colon (principal); R93.3 Abnormal findings on diagnostic imaging of other parts of digestive tract
CPT/HCPCS: 45385; 45380; 99152; J2250; J3010

== ENCOUNTER 2019-04-15 20:15 | Emergency (ER) | payer OTHER, SELFPAY ==
[2019-04-15 20:23] VITALS: BP 131/75; PULSE 90; RESP 16; TEMP 36.9; O2SAT 100
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
[2019-04-15] MEDS: cephALEXin 250 MG PREPACK 1 BOTTLE MISC (20:55)
[2019-04-15 20:58] VITALS: BP 125/44; PULSE 78; TEMP 37.1; O2SAT 98
== END 2019-04-15 21:09 | disposition home or self-care (01) ==
PROVIDERS: Emergency Provider Emergency Medicine; PCP Internal Medicine
DX: S61.211A Laceration without foreign body of left index finger without damage to nail, initial encounter (principal); W26.0XXA Contact with knife, initial encounter
CPT/HCPCS: 99282

== ENCOUNTER → 2020-06-05 14:56 | Outpatient (CLI) | payer OTHER, SELFPAY ==
--- NOTE | 2020-06-05 14:58 | DI.ECHO.S_ITS ---
[place] +---------+ Hospital +---------+ : : [address] : : : : [id number] : : : : Phone: [phone]+ Echocardiogram Report + + :Name: MAIKEL OTERO Study Date: 06/05/2020 Height: 58 in : :[facility] Weight: 84 lb : : Gender: Female BSA: 1.3 m2 : :: 1935 Age: 84 yrs BP: 126/68 mmHg: :Reason For Study: PEDAL EDEMA : :Ordering Physician: JULIENNE, : :ERLIN ALVES Performed By: Deena Archibald : :Referring: ERLIN ROBINS : + + Interpretation Summary Left ventricular systolic function appears normal with an estimated ejection fraction of 60 to 65% with a mild dyssynchronous contraction pattern with abnormal septal motion and a small area of mild hypokinesis in the mid interventricular septum that is unchanged from the previous study and likely reflects a conduction abnormality. Systolic function appears mildly more dynamic compared to the previous exam and diastolic parameters suggest a relaxation abnormality with probable normal filling pressures and possibly lower compared to the previous study. The right ventricle appears normal and unchanged from the previous study. Right ventricular systolic pressure cannot be estimated but the CVP is likely around 3 mmHg. The left atrium is moderately enlarged but unchanged from the previous exam while the right atrium is normal in size and is smaller compared to the previous study. There is no significant valvular abnormality. The patient was in sinus rhythm at 84 to 108 bpm which is considerably faster compared to the previous study. Procedure: A two-dimensional transthoracic echocardiogram with color flow and Doppler was performed. The study quality was technically adequate. Comparison is made with the echocardiogram of 09/05/2015. The patient was in sinus rhythm with heart rates between 84-108 bpm during the exam. This is considerably faster compared to the previous study. Left Ventricle: The left ventricle is normal in size. Left ventricular wall thickness is borderline increased. There is moderate proximal septal thickening noted. There is no echo evidence for significant left ventricular outflow tract obstruction. Left ventricular systolic function is normal. The ejection fraction is estimated to be 60-65%. This is more dynamic compared to the previous study. There is a mild dyssynchronous contraction pattern with abnormal motion of the septum with a small area of mild hypokinesis in the mid interventricular septum that is unchanged from the previous study and likely reflects a conduction abnormality. There are no other focal wall motion abnormalities. Diastolic parameters suggest a relaxation abnormality of the left ventricle, consistent with probable normal filling pressures. This is likely lower compared to the previous study. Right Ventricle: The right ventricle is normal in size and function. This is unchanged compared to the previous study. Atria: The left atrium is moderately dilated. This is unchanged compared to the previous study. Right atrial size is normal. The right atrium has mildly decreased in size since the prior echo exam. There is no Doppler evidence for an interatrial shunt. Mitral Valve: There is mild mitral annular calcification. The mitral valve leaflets appear normal. There is no evidence of stenosis, fluttering, or prolapse. There is no mitral regurgitation noted. Aortic Valve: The aortic valve is trileaflet. The aortic valve is slightly calcified. The aortic valve opens well. There is no aortic valve stenosis. No aortic regurgitation is present. Tricuspid Valve: The tricuspid valve is normal in structure and function. There is trace tricuspid regurgitation. Pulmonary artery pressures cannot be estimated because of the lack of a measurable TR jet velocity but the IVC suggests a CVP of around 3 mmHg. Pulmonic Valve: The pulmonic valve is not well visualized. There is no significant valvular heart disease. Great Vessels: The aortic root is normal size. The ascending aorta could not be visualized. The IVC is of normal diameter and collapses greater than 50% with a sniff. This suggests a low right atrial pressure of 3 mm Hg. Pericardium/ Pleura There is no pericardial effusion. There is no pleural effusion. MMode/2D Measurements & Calculations LVIDd: 3.7 cm LVOT diam: 2.2 cm LVIDs: 2.5 cm Ao root diam: 2.6 cm FS: 31.8 % EPSS: 0.77 cm IVSd: 0.78 cm LVPWd: 0.92 cm LV mccullough. diameter/BSA (cm/m^2): 2.9 LV sys. diameter/BSA (cm/m^2): 2.0 LA A2 area: 18.0 cm2 RA long axis: 3.5 cm LA A4 area: 16.8 cm2 RA area: 10.5 cm2 LA length (vol): 4.7 cm RA vol: 26.5 ml LA vol: 54.9 ml RA : 21.0 ml/m2 LA vol index: 43.6 ml/m2 IVC diam: 0.87 cm RVD1 (basal): 2.7 cm TAPSE: 1.7 cm Doppler Measurements & Calculations Ao V2 max: 98.4 cm/sec LVOT Max Tomasz: 67.1 cm/sec Ao V2 mean: 70.7 cm/sec LV V1 max P.8 mmHg Ao max P.9 mmHg LV V1 VTI: 15.3 cm Ao mean P.2 mmHg BENITO(I,D): 3.1 cm2 Ao V2 VTI: 18.6 cm BENITO(V,D): 2.6 cm2 sev ratio: 0.83 BENITO indexed to BSA (cm^2/m^2): 2.5 MV E max tomasz: 78.0 cm/sec PA V2 max: 70.6 cm/sec MV A max tomasz: 119.6 cm/sec PA V2 mean: 50.1 cm/sec MV E/A: 0.65 PA mean P.1 mmHg Med Peak E' Tomasz: 6.8 cm/sec PA pr(Accel): 43.0 mmHg E/E' med: 11.5 Lat Peak E' Tomasz: 8.9 cm/sec E/E' lat: 8.7 E/e' average: 10.1 MV dec time: 0.14 sec SV(LVOT): 57.9 ml Reading Physician:04:26 PM
== END ==
PROVIDERS: PCP Internal Medicine; Referring Provider Internal Medicine; Visit Provider Internal Medicine
DX: R60.0 Localized edema (principal)
CPT/HCPCS: 93306

== ENCOUNTER → 2020-09-20 13:56 | Outpatient (CLI) | payer MEDICARE, SELFPAY ==
[2020-09-20] MEDS: COVID-19 VACC #1, MRNA(MOD) 100 MCG/0.5 ML VIAL IM (14:03)
== END ==
PROVIDERS: PCP Internal Medicine; Visit Provider Internal Medicine
DX: Z23 Encounter for immunization (principal)
CPT/HCPCS: 0011A; 91301

== ENCOUNTER → 2020-10-18 14:11 | Outpatient (CLI) | payer MEDICARE, SELFPAY ==
[2020-10-18] MEDS: COVID-19 VACC #2, MRNA(MOD) 100 MCG/0.5 ML VIAL IM (14:15)
== END ==
PROVIDERS: PCP Internal Medicine; Visit Provider Internal Medicine
DX: Z23 Encounter for immunization (principal)
CPT/HCPCS: 0012A; 91301

== ENCOUNTER → 2020-11-14 14:34 | Outpatient (CLI) | payer OTHER, SELFPAY | PROVIDERS: PCP Internal Medicine; Referring Provider Internal Medicine; Visit Provider Internal Medicine | DX: M81.0 Age-related osteoporosis without current pathological fracture (principal); Z78.0 Asymptomatic menopausal state; Z90.722 Acquired absence of ovaries, bilateral | CPT/HCPCS: 77080 ==

== ENCOUNTER → 2021-01-04 13:35 | Outpatient (CLI) | payer OTHER, SELFPAY ==
[2021-01-04 14:14] LABS: Add Manual Diff / Slide Review NO; Basophils Absolute Auto 0 /uL (0-100); Basophils Percent Auto 1.1 % (0-2); Eosinophils Absolute Auto 100 /uL (0-450); Eosinophils Percent Auto 1.9 % (2-4); Hematocrit 41.8 % (36-46); Hemoglobin 13.8 g/dL (12.0-16.0); Lymphocytes Absolute Auto 1000 /uL (1100-4500); Lymphocytes Percent Auto 23.6 % (25-40); Mean Corpuscular Hemoglobin 30.3 PG (26-34); Mean Corpuscular Volume 91.9 fL (80-100); Monocytes Absolute Auto 400 /uL (0-900); Monocytes Percent Auto 8.8 % (3-14); Neutrophils Absolute Auto 2700 /uL (1500-7000); Neutrophils Percent Auto 64.6 % (50-75); Platelet Count 218 X10^3/uL (150-400); Red Blood Cell Count 4.55 X10^6/uL (4.0-5.2); Red Cell Distribution Width 13.8 % (11.6-14.8); White Blood Cell Count 4.2 X10^3/uL (4.5-11.0)
[2021-01-04 14:26] LABS: Alanine Aminotransferase 21 IU/L (<35); Albumin 3.7 g/dL (3.5-5.0); Albumin Globulin Ratio 1.2 (1.0-2.8); Alkaline Phosphatase 53 U/L (38-126); Aspartate Aminotransferase 31 IU/L (14-36); BUN Creatinine Ratio 25.4 (6-22); Bilirubin Total 0.7 mg/dL (0.2-1.3); Blood Urea Nitrogen 16 mg/dL (7-17); Calcium 9.2 mg/dL (8.4-10.2); Carbon Dioxide 30 mmol/L (22-32); Chloride 106 mmol/L (98-107); Cholesterol 172 mg/dL (140-199); Estimated Glomerular Filt Rate > 60.0 mL/min (>60); Globulin 3.1 g/dL (1.7-4.1); Glucose 96 mg/dL (80-110); HDL Cholesterol 55 mg/dL (40-60); HEMOLYSIS < 15 (0-50); LDL Cholesterol Calculated 103 mg/dL (<100); Potassium 4.1 mmol/L (3.4-5.1); Sodium 139 mmol/L (137-145); Total Protein 6.8 g/dL (6.3-8.2); Triglycerides 71 mg/dL (35-150)
[2021-01-04 15:00] LABS: Thyroid Stimulating Hormone 0.722 uIU/mL (0.47-4.68)
[2021-01-04 15:31] LABS: Folate > 20.0 ng/mL (2.76-20.0); Vitamin B12 908 pg/mL (239-931)
[2021-01-04 16:10] LABS: Vitamin D 25 Hydroxy (D3) 36.2 ng/mL (30.0-100.0)
[2021-01-05 06:25] LABS: Lipase 140 U/L (23-300)
== END ==
PROVIDERS: PCP Internal Medicine; Referring Provider Internal Medicine; Visit Provider Internal Medicine
DX: R63.4 Abnormal weight loss (principal); E78.5 Hyperlipidemia, unspecified; Z78.0 Asymptomatic menopausal state
CPT/HCPCS: 36415; 80053; 80061; 82306; 82607; 82746; 83690; 84443; 85025

== ENCOUNTER 2023-05-01 20:15 | Emergency (ER) | payer OTHER, SELFPAY ==
[2023-05-01 20:21] VITALS: BP 143/65; PULSE 77; RESP 18; TEMP 36.9; O2SAT 97; BMI 15.6
--- NOTE | 2023-05-01 20:30 | DI.RAD.S_ITS ---
PROCEDURE: XR HIP W PEL IF DONE RT 2V INDICATIONS: Right hip pain after fall TECHNIQUE: AP pelvis with lateral view(s) of the right hip(s). COMPARISON: [facility], CT, CT CHEST ABD PEL W CON, 07/27/2018, 13:46. [facility], CR, [id number] W PEL IF PERFORMED, 07/29/2017, 15:23. [facility], , HIP 2V RIGHT, 08/21/2011, 13:49. 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 No periprosthetic lucency to suggest loosening or infection. No fractures or dislocations. Pelvic ring appears intact. No suspicious bony lesions. Bone island at the right sacrum. Moderate left hip DJD. Soft tissues: The visualized bowel gas pattern is normal. No suspicious soft tissue calcifications. IMPRESSION: No acute bony abnormality. Stable right hip arthroplasty. Dictated by: Enrique Navarrete M.D. on 05/01/2023 at 21:32 Approved by: Enrique Navarrete M.D. on 05/01/2023 at 21:35
[2023-05-01] MEDS: TET,DIPH,PERTUSS(ACELL),VAC/PF 0.5 ML SYRINGE IM (21:09)
--- NOTE | 2023-05-01 21:42 | ED.FALL ---
HPI - Fall General Chief Complaint: Fall Stated Complaint: Left hand cut Time Seen by Provider: 05/01/23 21:42 Source: patient and family Mode of arrival: Ambulatory Limitations: no limitations History of Present Illness HPI Narrative: 87-year-old female with known daily medications no anticoagulation. Patient states she was going down the steps from her house to her garage to throw a box away. There are 2 steps on she fell onto her right hip. States has some right hip pain but she was able to walk on it and move everything normally. She states she does have a bruise on her butt. She also states she had cut to her left hand. She denies hitting her head no neck pain, no back pain. No chest pain or shortness of breath. No nausea or vomiting. No headache. No other GI or urinary symptoms. Patient states she is been walking since it happened. Tetanus was updated here in the emergency department. Does have a history of hip replacement and hysterectomy. No known drug allergies. No tobacco, alcohol or illicit. Patient normally ambulates unassisted. 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 #20 multiple units 09/18/17 [massage] #12 multiple units 09/18/17 cephalexin 500 mg capsule (Keflex) 500 mg PO TID #21 caps 04/15/19 mupirocin 2 % topical ointment 1 applic topical TID #15 grams 04/23/22 Allergies Allergy/AdvReac Type Severity Reaction Status Date / Time No Known Drug Allergies Allergy Verified 05/01/23 20:21 Review of Systems Review of Systems ROS Unobtainable: All systems reviewed & are unremarkable except as noted in HPI and below Patient History Medical History Edema Surgical History 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 HEENT: Atraumatic, pupils are equal round reactive to light, extraocular movements are intact, nares are clear, TMs are clear with no fluid, there is no conjunctival pallor. Throat is clear without any exudates, erythema, tonsillar enlargement or uvular deviation HEART: Regular rate and rhythm without murmur, clicks, rubs. pulses are equal bilateral lower lower extremities LUNGS:Lungs clear to auscultation, no wheezes, rales, crackles, chest moves symmetrically, no tachypnea accessory muscle use. Nontender to palpation. ABD:bowel sounds normal, soft, non-tender, no guarding, rebound, rigidity, no masses noted, no hepatosplenomegaly :No CVA tenderness BACK: No cervical, thoracic or lumbar vertebral point tenderness. Patient has normal range of motion. tibialis pulses are 2+ bilaterally Sensation is intact in the lower extremities. MSCL: Non-tender, no muscle atrophy, muscles strength 5/5 upper and lower extremities, full range of motion, patient does ulnar drift bilateral hands. Patient has decreased range of motion of fingers 3 4 and 5 on her left hand which is chronic. She is difficulty with extension. They state this is normal. She does have 1cm skin tear between the 1st and 2nd metacarpal. NEURO:CN 2-12 intact, sensation normal SKIN: Initial Vital Signs Initial Vital Signs: Vital Signs Temperature 98.4 F 05/01/23 20:21 Pulse Rate 77 05/01/23 20:21 Respiratory Rate 18 05/01/23 20:21 Blood Pressure 143/65 H 05/01/23 20:21 Pulse Oximetry 97 05/01/23 20:21 Oxygen Delivery Method Room Air 05/01/23 20:21 Course Orders Ordered: ED Orders 05/01/23 20:30 XR hip w pel if done RT 2V Stat Discontinued Medications Bacitracin (Bacitracin Oint 0.9 Gm Pckt) 1 applic TOP NOW ONE Stop: 05/01/23 22:03 Last Admin: 05/01/23 22:15 Dose: 1 applic Documented By: BONI Diphtheria/Tetanus/Acell Pertussis (Tet,Diph,Pertuss(Acell),Vac/Pf 0.5 Ml Syringe) 0.5 ml IM .ONCE ONE Stop: 05/01/23 20:31 Last Admin: 05/01/23 21:09 Dose: 0.5 ml Documented By: BONI Vital Signs Vital signs: Vital Signs - 8 hr 05/01/23 20:21 Temperature 98.4 F Pulse Rate 77 Respiratory Rate 18 Blood Pressure 143/65 H Pulse Oximetry 97 Oxygen Delivery Method Room Air MDM - Fall Imaging Data Extremity x-ray #1: Radiologist's Impression: [address] [address] XRay Report Signed Patient: Erica Alfaro MR#: [id number] : 1935 Acct:[id number] Age/Sex: 87 / F Date of Service: 05/01/23 Loc: ED Accession Number: [id number] Procedure: XR hip w pel if done RT 2V Ordering Provider: America De León D.O. PROCEDURE: XR HIP W PEL IF DONE RT 2V INDICATIONS: Right hip pain after fall TECHNIQUE: AP pelvis with lateral view(s) of the right hip(s). COMPARISON: [facility], CT, CT CHEST ABD PEL W CON, 07/27/2018, 13:46. [facility], CR, [id number] W PEL IF PERFORMED, 07/29/2017, 15:23. [facility], CR, HIP 2V RIGHT, 08/21/2011, 13:49. 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 No periprosthetic lucency to suggest loosening or infection. No fractures or dislocations. Pelvic ring appears intact. No suspicious bony lesions. Bone island at the right sacrum. Moderate left hip DJD. Soft tissues: The visualized bowel gas pattern is normal. No suspicious soft tissue calcifications. IMPRESSION: No acute bony abnormality. Stable right hip arthroplasty. Dictated by: Enrique Navarrete M.D. on 05/01/2023 at 21:32 Approved by: Enrique Navarrete M.D. on 05/01/2023 at 21:35 [facility] Narrative Medical decision making narrative: 87-year-old female with complaint of some right hip pain but full range of motion otherwise intact negative x-ray. Patient has a skin tear on her left hand but no other obvious new bony changes. Patient does have significant changes consistent with rheumatoid arthritis but states these are all chronic. Denies hitting her head no neck pain has been ambulating since falling with no daily anticoagulants. Reviewed wound care and management. Patient ambulated from the department under her own power. Discharge Plan Departure Patient Disposition: Home Clinical Impression: Skin tear of left hand without complication, Fall, Hip pain, right Instructions: How to Prevent Falls Activity Restrictions/Additional Instructions: Follow-up with your physician if the wound on your hand is not healing in the next 1-2 weeks. Wound Care: Keep wound(s) clean and dry. Wash daily with soap and water only. Pat dry. Do not use over the counter products (alcohol or peroxide)on the wounds unless instructed by a physician. You can put a topical triple antibiotic ointment to the affected area and use a nonstick dressing over it. Change dressing once daily. You can leave the area open to dry during the day. If wound condition worsens (increased/expanding redness, developing fluid blisters, or worsening pain), either contact your doctor for an urgent re-assessment , or return to the Emergency Department. Return to the Emergency Department for any new or worsening symptoms. Return if fever greater than 100.4 Fahrenheit, increased swelling, increasing pain or worsening symptoms such as increased discharge or spreading redness, new or worsening hip pain or other new or concerning changes. 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
[2023-05-01] MEDS: BACITRACIN OINT 0.9 GM PCKT 1 APPLIC TOP (22:15)
== END 2023-05-01 22:16 | disposition home or self-care (01) ==
PROVIDERS: Emergency Provider Emergency Medicine; PCP Internal Medicine
DX: S69.82XA Other specified injuries of left wrist, hand and finger(s), initial encounter (principal); M25.551 Pain in right hip; W10.8XXA Fall (on) (from) other stairs and steps, initial encounter; Y93.01 Activity, walking, marching and hiking; Z23 Encounter for immunization
CPT/HCPCS: 73502; 90471; 99283; 99284; 90715